=== PATIENT | female | born 1995 ===

== ENCOUNTER 2018-07-07 01:43 | Emergency (ER) | payer MEDICAID ==
[2018-07-07 01:50] VITALS: RESP 16
[2018-07-07 01:52] VITALS: BMI 35.2
--- NOTE | 2018-07-07 03:02 | C.PDOC ---
Time Seen by Provider: 07/07/18 02:12 Chief Complaint (Nursing): ENT Problem Past Medical History Vital Signs: Last Vital Signs Temp 98.4 F 07/07/18 01:50 Pulse 108 H 07/07/18 01:50 Resp 16 07/07/18 01:50 BP 144/84 07/07/18 01:50 Pulse Ox 98 07/07/18 01:50 - Medical History PMH: Asthma - Social History Hx Alcohol Use: Yes Hx Substance Use: No - Immunization History Hx Tetanus Toxoid Vaccination: No Hx Influenza Vaccination: No Hx Pneumococcal Vaccination: No ED Course And Treatment O2 Sat by Pulse Oximetry: 98 Disposition - Disposition Prescriptions: Acetaminophen [Tylenol 325mg tab] 650 mg PO Q4 #50 tab Forms: [employer] (Bangladeshi)
--- NOTE | 2018-07-07 03:02 | C.PDOC ---
History Of Present Illness 23 year old female presents to the ED c/o lesion to her mouth for the past 3 days. Patient states the lesion is painful but has not taken any medication for it. Patient denies fever, chills, nausea, vomit, rash, injury, fall, trauma. Time Seen by Provider: 07/07/18 02:12 Chief Complaint (Nursing): ENT Problem History Per: Patient History/Exam Limitations: None Onset/Duration Of Symptoms: Days (3) Current Symptoms Are (Timing): Still Present Quality (Mouth/Throat): Tenderness Anticoagulant/Antiplatlet Use?: No Recent Aspirin Use: No Past Medical History Reviewed: Historical Data, Nursing Documentation, Vital Signs Vital Signs: Last Vital Signs Temp 98.4 F 07/07/18 01:50 Pulse 108 H 07/07/18 01:50 Resp 16 07/07/18 01:50 BP 144/84 07/07/18 01:50 Pulse Ox 98 07/07/18 03:03 - Medical History PMH: Asthma Surgical History: No Surg Hx Family History: States: Unknown Family Hx - Social History Hx Alcohol Use: Yes Hx Substance Use: No - Immunization History Hx Tetanus Toxoid Vaccination: No Hx Influenza Vaccination: No Hx Pneumococcal Vaccination: No Review Of Systems Constitutional: Negative for: Fever, Chills ENT: Positive for: Mouth Pain. Negative for: Nose Discharge, Mouth Swelling, Throat Pain, Throat Swelling Respiratory: Negative for: Cough, Shortness of Breath Gastrointestinal: Negative for: Nausea, Vomiting Skin: Negative for: Rash Physical Exam - Physical Exam Appears: Non-toxic, No Acute Distress Skin: Normal Color, Warm, Dry Head: Atraumatic, Normacephalic Eye(s): bilateral: Normal Inspection Ear(s): Bilateral: Normal Oral Mucosa: Moist, Other (3mm blister left inner cheek ) Tongue: No Lesions Lips: No Lesions Throat: Normal, No Erythema, No Exudate Neck: Normal ROM, Supple Neurological/Psych: Oriented x3, Normal Speech, Normal Cognition Gait: Steady ED Course And Treatment O2 Sat by Pulse Oximetry: 98 (ON RA) Pulse Ox Interpretation: Normal Medical Decision Making Medical Decision Making: Plan: * Tylenol 975 mg PO Patient states she has an appointment with her dentist on Sunday for follow up. Disposition Counseled Patient/Family Regarding: Diagnosis, Need For Followup, Rx Given - Disposition Disposition: HOME/ ROUTINE Disposition Time: 03:00 Condition: GOOD Additional Instructions: Please take Tylenol as prescribed. Rinse mouth several times a day with warm salty water. Eat soft foods. Follow up with your dentist on Sunday as scheduled. 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 - Scribe Statement The provider has reviewed the documentation as recorded by the Scribe Perez Figueroa All medical record entries made by the Scribe were at my direction and personally dictated by me. I have reviewed the chart and agree that the record accurately reflects my personal performance of the history, physical exam, medical decision making, and the department course for this patient. I have also personally directed, reviewed, and agree with the discharge instructions and disposition.
[2018-07-07 03:29] VITALS: BP 114/76; PULSE 90; TEMP 98
[2018-07-08 03:25] VITALS: O2SAT 98
== END 2018-07-07 03:42 | disposition home or self-care (01) ==
LOC: C.ER 01:43
DX: K12.0 Recurrent oral aphthae (principal)